=== PATIENT | male | born 2000 | race African-American/Black ===

== ENCOUNTER 2019-03-31 13:00 | Emergency (ER) | payer BC, MEDICAID, OTHER ==
[2019-03-31 13:15] VITALS: BP 141/72
[2019-03-31] MEDS ORDERED: DEXAMETHASONE 10 MG/ML VIAL PO STA (14:05)
[2019-03-31] MEDS ORDERED: CHERRY SYRUP 10 ML UDC PO ONE (14:05)
--- NOTE | 2019-03-31 14:09 | ED Physician Documentation ---
PD HPI NECK PAIN - Stated complaint Stated Complaint: NECK PX - Chief complaint Chief Complaint: Trauma Hd/Nk - History obtained from History obtained from: Patient - History of Present Illness Timing - onset: How many months ago (2.5) Timing - duration: Months (2.5) Timing - details: Abrupt onset, Still present Location: Mid, Left Quality: Pain, Spasm, Sharp Associated symptoms: No: Fever, Weakness, Numbness, Incontinent of urine, Unable to urinate, Hematuria, Incontinent of stool Improves with: Rest, Ice, Position Worsened by: Movement Contributing factors: Lifting Similar symptoms before: Has not had sx before Recently seen: Clinic - Additional information Additional information: 18-year-old male was helping someone move and strained his neck. This was about 2-1/2 months ago. He has had pain in a specific area of his neck radiating to the top of his shoulder since that time. He is been using a heating pack and some ice and stretch and despite this he has not had resolution. He did going to see the doctor yesterday he was given a prescription for some tizanidine which did not help. He is here with persistent pain. 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 Review of Systems Constitutional: denies: Fever Eyes: denies: Decreased vision Ears: denies: Ear pain Nose: denies: Congestion Throat: denies: Sore throat Cardiac: denies: Chest pain / pressure Respiratory: denies: Dyspnea, Cough PD PAST MEDICAL HISTORY - Past Surgical History Past Surgical History: No - Present Medications Home Medications: Ambulatory Orders Medication Instructions Recorded Confirmed traMADol [Ultram] 50 - 100 mg PO Q6H PRN #20 tablet 03/31/19 - Allergies Allergies/Adverse Reactions: Allergies Allergy/AdvReac Type Severity Reaction Status Date / Time No Known Drug Allergies Allergy Verified 10/30/14 18:04 - Social History Does the pt smoke?: No Smoking Status: Never smoker Does the pt drink ETOH?: No Does the pt have substance abuse?: No - Immunizations Immunizations are current?: Yes - POLST Patient has POLST: No PD ED PE NORMAL - Vitals Vital signs reviewed: Yes (hypertensive m;il ) - General General: Alert and oriented X 3, No acute distress, Well developed/nourished - HEENT HEENT: Atraumatic, PERRL, EOMI - Neck Neck: Supple, no meningeal sign, No bony TTP, Other (There is mild tenderness to the paraspinous muscles on the left side with pain extending to the trapezius over the insertion of the spinal accessory . ) - Respiratory Respiratory: No respiratory distress - Derm Derm: Normal color, Warm and dry, No rash - Extremities Extremities: No deformity, No edema - Neuro Neuro: Alert and oriented X 3, river tester 2-12 intact, No motor deficit, No sensory deficit, Normal speech Eye Opening: Spontaneous Motor: Obeys Commands Verbal: Oriented GCS Score: 15 - Psych Psych: Normal mood, Normal affect Results - Vitals Vitals: Vital Signs - 24 hr 03/31/19 13:09 Temperature 36.6 C Heart Rate 55 L Respiratory 16 Rate Blood Pressure 141/72 H O2 Saturation 99 Oxygen O2 Source Room air PD MEDICAL DECISION MAKING - ED course Complexity details: considered differential, d/w patient ED course: 18-year-old male with a cervical radiculopathy has persistence of his pain and he has inadequate relief with the use of a muscle relaxant. He is administered dexamethasone 10 mg orally here in the emergency department and we will add in some tramadol into his regimen. He indicates he has not taken any narcotic pain relievers previously in his life. I am reluctant to prescribe anything more than this. Departure - Departure Disposition: 01 Home, Self Care Clinical Impression: Cervical myofascial pain syndrome Condition: Stable Instructions: ED Neck Back Pain General Follow-Up: [facility] [Provider Group] Prescriptions: traMADol [Ultram] 50 - 100 mg PO Q6H PRN #20 tablet PRN Reason: Pain
== END 2019-03-31 14:16 | disposition home or self-care (01) ==
LOC: ED 13:00
DX: M79.18 Myalgia, other site (principal)
CPT/HCPCS: 99283